=== PATIENT | male | born 1950 | race Caucasian/White ===

== ENCOUNTER 2016-12-30 23:33 | Emergency (ER) | payer OTHER ==
[2016-12-31 00:06] LABS: COLOR YELLOW; LEUKOCYTE ESTERASE,URINE NEGATIVE (NEGATIVE); NITRITE,URINE NEGATIVE (NEGATIVE)
[2016-12-31 00:10] LABS: MUCUS TRACE /lpf (NONE-1+); RBC,URINE 50-182 /hpf (0-3)
[2016-12-31] MEDS ORDERED: IBUPROFEN 600 MG TAB PO ONE ×2 (00:27→00:28)
--- NOTE | 2016-12-31 00:32 | EDPHY ---
H & P Stated Complaint: RIGHT FLANK PAIN 2 HRS Time Seen by Provider: 12/31/16 00:11 HPI/ROS: Chief Complaint: Right flank pain HPI: 66-year-old male with past medical history of kidney stones 20 years ago started having right flank pain about 3 hours ago. At work still was an 8/10, is now down to a 4 on 10. He has not had any relief with changing positions. Did take some Tylenol without any relief. No nausea or vomiting. No fevers or chills. Is presenting concerned that it might be appendicitis versus a kidney stone. He is visiting from [facility]. No chest pain or shortness of breath. No fevers or chills. No urinary urgency or frequency. ROS: 10 point Review of Systems is negative except as noted in the HPI. PMH: Kidney stones, osteoporosis Medications: Zetia, Co Q10, aspirin, calcium Allergies: No known drug allergies Social History: No smoking, occasional alcohol, no recreational drug use Family History: non-contributory Physical Exam: Gen: Awake, Alert, No Distress HEENT: Nose: no rhinorrhea Eyes: PERRLA, EOMI Mouth: Moist mucosa Neck: Supple, no JVD Chest: nontender, lungs clear to auscultation Heart: S1, S2 normal, no murmur Abd: Soft, non-tender, no guarding Back: no CVA tenderness, no midline tenderness Ext: no edema, non-tender Skin: no rash Neuro: CN II-XII intact, Sensation grossly intact, Strength 5/5 in bilateral upper and lower extremities - Personal History Current Tetanus/Diphtheria Vaccine: Unsure Current Tetanus Diphtheria and Acellular Pertussis (TDAP): Unsure - Medical/Surgical History Hx Asthma: No Hx Chronic Respiratory Disease: No Hx Diabetes: No Hx Cardiac Disease: No Hx Renal Disease: No Hx Cirrhosis: No Hx Alcoholism: No Hx HIV/AIDS: No Hx Splenectomy or Spleen Trauma: No Other PMH: KIDNEY STONES , BACK ISSUES, HIGH CHOLESTEROL - Social History Smoking Status: Never smoked Constitutional: Initial Vital Signs Temperature (C) 36.6 C 12/30/16 23:34 Heart Rate 60 12/30/16 23:34 Respiratory Rate 18 12/30/16 23:34 Blood Pressure 170/97 H 12/30/16 23:34 O2 Sat (%) 99 12/30/16 23:34 O2 Delivery Mode Room Air Allergies/Adverse Reactions: No Known Allergies Allergy (Unverified 12/30/16 23:39) Home Medications: Medication Instructions Recorded Aspirin 81 mg PO 12/30/16 Ezetimibe [Zetia] 10 mg PO 12/30/16 Medical Decision Making ED Course/Re-evaluation: Urinalysis is positive for hematuria, no infection. I have had a long discussion with the patient. I have confirmed that his symptoms are likely secondary to kidney stone. I have recommended CT scan to evaluate the size and position of the stone. Patient is declining at this time. He does not want any intravenous right medications. He would prefer just to take ibuprofen 600 mg now. Does not want anything stronger at this time. Does not want further evaluation. He states he will return if his symptoms worsen. He will otherwise follow up with his primary care physician when he returns to [place] Tuesday. - Data Points Laboratory Results: 12/30/16 23:46 Urine Color YELLOW Urine Appearance HAZY Urine pH 6.0 (5.0-7.5) Ur Specific [place] 1.017 (1.002-1.030) Urine Protein NEGATIVE (NEGATIVE) Urine Ketones NEGATIVE (NEGATIVE) Urine Blood 3+ H (NEGATIVE) Urine Nitrate NEGATIVE (NEGATIVE) Urine Bilirubin NEGATIVE (NEGATIVE) Urine Urobilinogen NEGATIVE EU EU (0.2-1.0) Ur Leukocyte Esterase NEGATIVE (NEGATIVE) Urine RBC 50-182 /hpf H /hpf (0-3) Urine WBC 1-3 /hpf /hpf (0-3) Ur Epithelial Cells NONE SEEN /lpf /lpf (NONE-1+) Urine Mucus TRACE /lpf /lpf (NONE-1+) Urine Glucose NEGATIVE (NEGATIVE) Departure - Departure Disposition: Home, Routine, Self-Care Clinical Impression: Renal colic on right side Condition: Good Instructions: Kidney Stones (ED) Additional Instructions: You may take ibuprofen 600-800 mg 3 times a day as needed for pain. Return to the emergency department for increasing pain, fevers, chills, uncontrolled nausea or vomiting, or any other concerns. Strain your urine and collect any stones that you pass and take them to your physician. Referrals: Patient,NotPresent [Primary Care Provider] - As per Instructions
[2016-12-31 00:42] VITALS: BP 140/93; PULSE 57; RESP 20; TEMP 98.1; O2SAT 95
== END 2016-12-31 00:42 | disposition home or self-care (01) ==
DX: N23 Unspecified renal colic (principal)